=== PATIENT | male | born 1930 | race Caucasian/White ===

== ENCOUNTER 2022-01-01 11:28 | Emergency (ER) | payer MEDICARE, OTHER ==
[~2022-01-01] VITALS: Ht 172.7 cm; Wt 72.6 kg
--- NOTE | 2022-01-01 13:41 | NUR ---
PT IS IN ROOM #5. DR AMARO EVALUATED THE PT.
[2022-01-01] MEDS ORDERED: IV NORMAL SALINE 500 ML BAG IV ONE (14:00)
[2022-01-01] MEDS ORDERED: PROPOFOL 200 MG/20 ML BOTTLE IV ONE (14:00)
[2022-01-01] MEDS ORDERED: FENTANYL CITRATE 100 MCG/2 ML AMPUL IV ONE (14:00)
--- NOTE | 2022-01-01 14:06 | NUR ---
L/M for Dr. Baldwin at his office.
[2022-01-01] MEDS ORDERED: FENTANYL CITRATE 100 MCG/2 ML AMPUL ONE (14:13)
[2022-01-01] MEDS ORDERED: PROPOFOL 100 ML ONE (14:13)
--- NOTE | 2022-01-01 15:25 | NUR ---
MD gave bolus of 50 mcg diprivan and then reduced pt dislocated left hip. Knee immobilizer applied to left leg to reduce pt. movement, per MD. radiology notified.
--- NOTE | 2022-01-01 16:23 | NUR ---
called son to pick-up pt.
--- NOTE | 2022-01-01 17:18 | NUR ---
IV removed intact, site ok, bandaged. Pt's son given d/c instructions, verbalized understanding.
[2022-01-01 17:21] VITALS: BP 122/52
== END 2022-01-01 17:22 | disposition home or self-care (01) ==
LOC: ER 11:28
DX: T84.021A Dislocation of internal left hip prosthesis, initial encounter (principal); Y79.2 Prosthetic and other implants, materials and accessory orthopedic devices associated with adverse incidents; Y92.009 Unspecified place in unspecified non-institutional (private) residence as the place of occurrence of the external cause; Z85.828 Personal history of other malignant neoplasm of skin; E11.9 Type 2 diabetes mellitus without complications; I11.0 Hypertensive heart disease with heart failure; I50.9 Heart failure, unspecified; M84.452A Pathological fracture, left femur, initial encounter for fracture
CPT/HCPCS: 99285; 27265; 96374; 73502 ×2; J3010; A4663; G0500; J3490